=== PATIENT | male | born 1990 | race African-American/Black ===

== ENCOUNTER 2017-06-17 00:03 | Emergency (ER) | payer OTHER ==
[~2017-06-17] VITALS: Ht 167.6 cm; Wt 66.0 kg
[2017-06-17 00:07] VITALS: TEMP 36.8; Ht 167.6 cm; Wt 66.0 kg
[2017-06-17 00:10] VITALS: O2SAT 97
--- NOTE | 2017-06-17 00:56 | EMERGENCY ROOM VISIT NOTE ---
History Report prepared by Rudolph: Cordell Gutierrez Under the Supervision of: Dr. Ashley Yan D.O. First contact with patient: 00:06 Chief Complaint: ALCOHOL OVERDOSE Stated Complaint: ALCOHOL Nursing Triage Summary: Patient was found stumbing by police downtown and he walked into an alley and leaned up against wall. admits to drinking, denies drug use. History of Present Illness The patient is a 27 year old male who presents to the Emergency Room with a constant alcohol overdose occurring prior to arrival. Per the nursing staff the patient was [place] stumbling by police downtown in an alley, and he was leaning up against a wall. The patient admits to drinking, and he denies nay drug use. History is limited secondary to intoxication. Source of History: nursing staff History Limited By: intoxication Onset: prior to arrival Position: other (global) Quality: other (lcohol overdose) Timing: constant Review of Systems HPI is limited secondary to intoxication. Past Medical & Surgical History is limited secondary to intoxication Family History History is limited secondary to intoxication Social History Smoking Status: Never Smoker Alcohol Use: heavy Drug Use: none Marital Status: single Housing Status: lives with roommate Occupation Status: employed Current/Historical Medications Unable to Obtain Active Prescriptions or Reported Meds Allergies Coded Allergies: No Known Allergies (Unverified , 06/17/17) Physical Exam Vital Signs Date Time Temp Pulse Resp B/P (MAP) Pulse Ox O2 Delivery O2 Flow Rate FiO2 06/17/17 05:31 109/60 06/17/17 05:10 92 16 99 Room Air 06/17/17 05:01 89/47 06/17/17 04:52 103 06/17/17 04:40 86 16 93 06/17/17 04:35 87 16 94 Room Air 06/17/17 04:31 94/61 06/17/17 04:05 107 13 98 06/17/17 03:35 100 16 95 06/17/17 03:30 105 16 115/98 94 Room Air 06/17/17 03:15 118 95 06/17/17 02:45 116 18 96 06/17/17 02:15 114 20 128/72 98 06/17/17 02:15 88 16 92 06/17/17 00:22 98 06/17/17 00:10 97 Room Air 06/17/17 00:07 36.8 85 16 143/77 98 Room Air Physical Exam General: Answers everything with "I'm here." Smells of alcohol HEENT: Head - normocephalic and atraumatic Pupils are 4mm and slightly sluggishly reactive to light. Extraocular eye muscles are intact, and sclera are anicteric. Nose - moist nasal mucosa without discharge. Mouth - moist buccal mucosa. Oropharynx is nonerythematous and there is no tonsillar exudate or edema noted. Neck: Supple; no JVD, nuchal rigidity, cervical lymphadenopathy. Heart: Tachycardic rate and regular rhythm. There is a normal S1 and S2 with no murmurs, clicks, or gallops appreciated. Lungs: Clear to auscultation bilaterally with no wheezes, rales, or rhonchi. Abdomen: Soft, completely nontender, nondistended, with good bowel sounds. There are no palpable pulsatile masses or hepatosplenomegaly. There is no guarding, rigidity, or rebound noted. Extremities: No evidence of cyanosis, clubbing, or edema. There are easily palpable peripheral pulses. Skin: Multiple tattoos; warm and dry with good turgor and no rashes. Medical Decision & Procedures Laboratory Results 06/17/17 00:11 Test 06/17/17 00:11 Anion Gap 7.0 mmol/L (3-11) Est Creatinine Clear Calc Drug Dose 102.0 ml/min Estimated GFR () 121.3 Estimated GFR (Non- 104.7 BUN/Creatinine Ratio 5.5 (10-20) Calcium Level 8.8 mg/dl (8.5-10.1) Ethyl Alcohol mg/dL 298.0 mg/dl (0-3) Laboratory results per my review. ED Course 0035: Past medical records reviewed. The patient was evaluated in room C4. A complete history and physical exam was performed. As I was walking into the room , the patient tried to leave and walked into a glass door. He did not follow the ground or lose consciousness. The patient was placed in the prone position to avoid aspiration. He was observing the sweat band sewer and pulse oximeter. 0149: I reevaluated the patient, and he was asleep and hemodynamically stable 0359: I reevaluated the patient, and he was asleep and hemodynamically stable 0604: I reevaluated the patient, and he was awake. He denies any head pain as a result of walking into the door. He doesn't remember the events of the evening. He is working on getting a ride with his friends. Medical Decision The patient is a 27 year old male who presents to the ED for an alcohol overdose. Differential diagnosis includes alcohol overdose, drug intoxication, hypoglycemia, and head injury. Lab results show: Alcohol of 298, normal renal functions, and glucose of 107 The patient presents to the emergency department after consuming too much alcohol. He remained cooperative and hemodynamically stable in the emergency department. He was observed over some time until he was more sober. I encouraged the patient to avoid such excessive alcohol use in the future. He should keep himself well-hydrated and rest throughout the day today. Medication Reconcilliation Current Medication List: was personally reviewed by me Blood Pressure Screening Patient's blood pressure: Normal blood pressure Impression Primary Impression: Alcohol overdose Scribe Attestation The scribe's documentation has been prepared under my direction and personally reviewed by me in its entirety. I confirm that the note above accurately reflects all work, treatment, procedures, and medical decision making performed by me. Departure Information Dispostion Home / Self-Care Prescriptions Unable to Obtain Active Prescriptions or Reported Meds Referrals No Doctor, Assigned (PCP) Forms HOME CARE DOCUMENTATION FORM, IMPORTANT VISIT INFORMATION Patient Instructions ED Overdose Alcohol, [facility]: [employer] Students and Alcohol Related Visits, My [facility] Additional Instructions Avoid such excessive alcohol use in the future. Rest Take plenty of clear liquids Use tylenol for headache Problem Qualifiers Primary Impression: Alcohol overdose Encounter type: initial encounter Injury intent: accidental or unintentional Qualified Codes: T51.91XA - Toxic effect of unspecified alcohol , accidental (unintentional), initial encounter
[2017-06-17 01:38] LABS: BUN/CREATININE RATIO 5.5 (10-20); CALCIUM 8.8 mg/dl (8.5-10.1); CREATININE 0.99 mg/dl (0.60-1.40); POTASSIUM 3.6 mmol/L (3.5-5.1)
[2017-06-17 06:54] VITALS: BP 108/81; PULSE 88; O2SAT 98
== END 2017-06-17 06:54 | disposition home or self-care (01) ==
LOC: EDBD 00:03 → C.EDC 00:06 → C.EDA 06:54
DX: T51.91XA Toxic effect of unspecified alcohol, accidental (unintentional), initial encounter (principal); Y90.8 Blood alcohol level of 240 mg/100 ml or more